=== PATIENT | male | born 1970 | race Caucasian/White ===

== ENCOUNTER 2016-09-16 19:35 | Emergency (ER) | payer BC ==
[~2016-09-16] VITALS: Ht 182.9 cm; Wt 94.4 kg
[~2016-09-16 19:35] MED LIST: UNABLE
[2016-09-16 19:40] VITALS: TEMP 36.8; Ht 182.9 cm; Wt 94.4 kg
[2016-09-16] MEDS ORDERED: RABIES VACCINE (IMOVAX) HUMAN DIPL CELL 2.5 INTER.UNIT/ML SYR IM. ONE (20:00)
[2016-09-16] MEDS ORDERED: RABIES IMMUNE GLOBULIN (HUMAN) 150 INTER.UNIT/ML 2 ML VIAL IM. ONE (20:00)
--- NOTE | 2016-09-16 20:00 | EMERGENCY ROOM VISIT NOTE ---
ED Visit Note First contact with patient: 19:45 CHIEF COMPLAINT: Possible rabies exposure HISTORY OF PRESENT ILLNESS: This 46-year-old male patient presents to the emergency department for rabies vaccination series. There is concern for rabies exposure.. The patient states that there was a stray cat at their house. The patient states that the cat is well appearing but is a feral cat. He is not certain where the cat is now. He was seen at [facility] and the wounds were cleaned and dressed. He was given a tetanus shot and started on antibiotics. He was referred to the emergency department for the rabies vaccination series. REVIEW OF SYSTEMS: A 6 system review of systems was completed with positives and pertinent negatives listed in the HPI. ALLERGIES: No known drug allergies MEDICATIONS: Patient denies PMH: Patient denies. SOCIAL HISTORY: The patient does not smoke. He lives locally. PHYSICAL EXAM: Vital Signs: Reviewed Nurse's notes, vital signs stable. GENERAL : This is a 46-year-old male, in no acute distress, well-developed, well- nourished. HEAD: Atraumatic, without temporal or scalp tenderness. EYES: PERRLA, EOMI, no discharge or injection. SKIN: There is a superficial wound to the left second finger. There is a puncture wound to the tip of the left third finger.. Capillary refill less than 2 seconds. NEUROLOGICAL: Alert and oriented to person place and time. Normal sensation to light and sharp touch. MUSCULOSKELETAL: Motor functions grossly intact of the fingers. Full range of motion. There is no tenderness . EMERGENCY DEPARTMENT COURSE: I examined the patient. The patient was given RIG 20 Units/kg. 1 mL was injected into the site of the cat bite. The patient was given Imovax 1ml IM. The patient was observed for 20 minutes with no reaction. The patient was discharged home in stable condition. The patient states that he will be able to return on Saturday for his day 3 vaccination. He states that they will be out of town until next Saturday. He states that they will be in [facility]. They did ask if we could help find a place in [place] that does have the rabies vaccine. They do not know of any urgent cares or what hospital they would be closest to but will bring this information when they return on Saturday for the next vaccine. I advised him that case management may be able to make a few phone calls. DIAGNOSIS: Rabies prophylaxis DISCHARGE INSTRUCTIONS: Today is day 0. Return to the ER on days 3, 7, 14 for subsequent vaccinations. Return sooner or follow up with your family doctor for signs of infection (increased redness, discharge, fever) or for complications with the vaccine series. Day 3 September 19 Day 7 SaturdaySeptember 23 Day SaturdaySeptember 30 Current/Historical Medications No Active Prescriptions or Reported Meds Allergies Uncoded Allergies: SUTURE MATERIALS (Allergy, Intermediate, "AREA SWELLS AND HEALS WITH LARGER SCAR THAN SHOULD BE", 09/16/16) Vital Signs Date Time Temp Pulse Resp B/P Pulse Ox O2 Delivery O2 Flow Rate FiO2 09/16/16 20:47 67 18 152/91 95 Room Air 09/16/16 19:40 36.8 67 16 186/118 95 Room Air Medications Administered Medications (Trade) Dose Ordered Sig/Jasen Route Start Time Stop Time Status Last Admin Dose Admin Rabies Immune Globulin (Imogam Rabies Inj) 1,880 interunit ONCE ONCE IM. 09/16/16 20:00 09/16/16 20:01 DC 09/16/16 20:28 1,880 INTERUNIT Rabies Vaccine Human Diploid Cell (Imovax Rabies) 2.5 interunit ONCE ONCE IM. 09/16/16 20:00 09/16/16 20:01 DC 09/16/16 20:25 2.5 INTERUNIT Departure Information Dispostion Home / Self-Care Condition GOOD Prescriptions No Active Prescriptions or Reported Meds Referrals Dane Rosado M.D. (PCP) Patient Instructions My [facility] Additional Instructions Today is day 0. Return to the ER on days 3, 7, 14 for subsequent vaccinations. Return sooner or follow up with your family doctor for signs of infection (increased redness, discharge, fever) or for complications with the vaccine series. Day 3 September 19 Day 7 SaturdaySeptember 23 Day SaturdaySeptember 30
[2016-09-16 20:47] VITALS: BP 152/91; PULSE 67; O2SAT 95
== END 2016-09-16 20:54 | disposition home or self-care (01) ==
LOC: C.EDB 19:37 → C.EDD 20:54
DX: Z23 Encounter for immunization (principal); Z20.3 Contact with and (suspected) exposure to rabies; W55.01XA Bitten by cat, initial encounter

== ENCOUNTER 2016-09-19 07:31 | Emergency (ER) | payer BC ==
[~2016-09-19] VITALS: Ht 182.9 cm; Wt 94.3 kg
[2016-09-19 07:33] VITALS: TEMP 36.6; Ht 182.9 cm; Wt 94.3 kg
[2016-09-19] MEDS ORDERED: RABIES VACCINE (IMOVAX) HUMAN DIPL CELL 2.5 INTER.UNIT/ML SYR IM. ONE (07:45)
--- NOTE | 2016-09-19 08:00 | EMERGENCY ROOM VISIT NOTE ---
ED Visit Note First contact with patient: 07:38 CHIEF COMPLAINT: Rabies shot #2 HISTORY OF PRESENT ILLNESS: Patient is a 46-year-old white male who returns to the emergency department as advised for his second rabies shot. He is potentially exposed to rabies when he was bitten by a feral cat on 09/16. He received his initial rabies vaccination here. He is taking antibiotics as prescribed. Reports wounds are healing well. He denies any problems, concerns or reactions regarding the prior vaccinations. He is traveling to [place] today. He contacted the local [facility] where he will be, and confirmed that they have the ability to give him the vaccine that he will be due while he is traveling. REVIEW OF SYSTEMS: Review of systems as per HPI. All other systems reviewed were negative. At least 3 systems reviewed. PMH: Electronic medical records are reviewed and summarized as above/below. See Problem List. SOCIAL HISTORY: Patient lives at home. PHYSICAL EXAM: Vital Signs: Reviewed Nurse's notes. HEAD: Atraumatic, without temporal or scalp tenderness. EYES: PERRL, EOMI, no discharge or injection. SKIN: Healing puncture wounds noted on the finger NEUROLOGICAL: Alert and cooperative. Sensory and motor functions grossly intact. EMERGENCY DEPARTMENT COURSE: Patient was given Imovax IM, observed and then discharged. Current/Historical Medications No Active Prescriptions or Reported Meds Allergies Uncoded Allergies: SUTURE MATERIALS (Allergy, Intermediate, "AREA SWELLS AND HEALS WITH LARGER SCAR THAN SHOULD BE", 09/16/16) Vital Signs Date Time Temp Pulse Resp B/P Pulse Ox O2 Delivery O2 Flow Rate FiO2 09/19/16 08:10 80 16 149/89 98 09/19/16 07:33 36.6 80 16 149/89 98 Room Air Medications Administered Medications (Trade) Dose Ordered Sig/Jasen Route Start Time Stop Time Status Last Admin Dose Admin Rabies Vaccine Human Diploid Cell (Imovax Rabies) 2.5 interunit ONCE ONCE IM. 09/19/16 07:45 09/19/16 07:46 DC 09/19/16 08:03 2.5 INTERUNIT Departure Information Impression Primary Impression: Rabies, need for prophylactic vaccination against Prescriptions No Active Prescriptions or Reported Meds Patient Instructions My [facility] Additional Instructions Finish antibiotics as previously prescribed. Have you 3rd shot (Imovax) on 09/23 (Day 7) in [place] as previously discussed. Return to our facility for your final vaccination on 09/30. Seek immediate medical attention for worsening pain, swelling, redness at the site of the bite, fevers, worsening symptoms or any other concerns.
[2016-09-19 08:10] VITALS: BP 149/89; PULSE 80; O2SAT 98
== END 2016-09-19 08:11 | disposition home or self-care (01) ==
LOC: C.EDB 07:32 → C.EDA 08:11
DX: Z20.3 Contact with and (suspected) exposure to rabies (principal); Z23 Encounter for immunization

== ENCOUNTER 2016-09-30 13:21 | Emergency (ER) | payer BC ==
[~2016-09-30] VITALS: Ht 182.9 cm; Wt 95.8 kg
[2016-09-30 13:28] VITALS: TEMP 36.8; Ht 182.9 cm; Wt 95.8 kg
[2016-09-30] MEDS ORDERED: RABIES VACCINE (IMOVAX) HUMAN DIPL CELL 2.5 INTER.UNIT/ML SYR IM. ONE (14:00)
[2016-09-30 14:09] VITALS: BP 160/96; PULSE 76; O2SAT 98
--- NOTE | 2016-09-30 14:52 | EMERGENCY ROOM VISIT NOTE ---
ED Visit Note First contact with patient: 13:39 CHIEF COMPLAINT: Rabies shot #4 HISTORY OF PRESENT ILLNESS: Patient is a 46-year-old white male who returns to the emergency department as advised for his final rabies shot. He is potentially exposed to rabies when he was bitten by a feral cat. He received his initial rabies vaccination here. He received his third vaccination while he was traveling in [place] last week. REVIEW OF SYSTEMS: Review of systems as per HPI. All other systems reviewed were negative. At least 3 systems reviewed. PMH: Electronic medical records are reviewed and summarized as above/below. See Problem List. SOCIAL HISTORY: Patient lives at home. PHYSICAL EXAM: Vital Signs: Reviewed Nurse's notes. HEAD: Atraumatic, without temporal or scalp tenderness. EYES: PERRL, EOMI, no discharge or injection. SKIN: Healing puncture wounds noted on the finger NEUROLOGICAL: Alert and cooperative. Sensory and motor functions grossly intact. EMERGENCY DEPARTMENT COURSE: Patient was given Imovax IM, observed and then discharged. Current/Historical Medications No Active Prescriptions or Reported Meds Allergies Uncoded Allergies: SUTURE MATERIALS (Allergy, Intermediate, "AREA SWELLS AND HEALS WITH LARGER SCAR THAN SHOULD BE", 09/16/16) Vital Signs Date Time Temp Pulse Resp B/P Pulse Ox O2 Delivery O2 Flow Rate FiO2 09/30/16 14:09 76 16 160/96 98 09/30/16 13:28 36.8 77 16 152/95 98 Medications Administered Medications (Trade) Dose Ordered Sig/Jasen Route Start Time Stop Time Status Last Admin Dose Admin Rabies Vaccine Human Diploid Cell (Imovax Rabies) 2.5 interunit ONCE ONCE IM. 09/30/16 14:00 09/30/16 14:01 DC 09/30/16 14:00 2.5 INTERUNIT Departure Information Impression Primary Impression: Rabies, need for prophylactic vaccination against Dispostion Home / Self-Care Condition GOOD Prescriptions No Active Prescriptions or Reported Meds [facility] Instructions [facility] Additional Instructions Return to the emergency department as needed.
== END 2016-09-30 14:09 | disposition home or self-care (01) ==
LOC: C.EDB 13:23 → C.EDD 14:09
DX: Z23 Encounter for immunization (principal)